=== PATIENT | female | born 1965 | race Caucasian/White ===

== ENCOUNTER 2019-10-31 07:20 | Day surgery (SDC) | payer BC ==
[~2019-10-31 07:20] MED LIST: Lactated Ringers 1,000 ML IV SCH; Sodium Chloride 0.9% 10 ML Syringe FLUSH PRN
[2019-10-31] MEDS ORDERED: Ketorolac 30 MG/ML SDV IVPUSH ONE (07:21)
[2019-10-31] MEDS ORDERED: fentaNYL 100 MCG/2 ML SDV IV ONE (07:21)
[2019-10-31] MEDS ORDERED: Midazolam 1 MG/ML 2 ML SDV IV ONE (07:21)
[2019-10-31] MEDS ORDERED: Lactated Ringers 1,000 ML IV ONE (07:21)
[2019-10-31] MEDS ORDERED: Ondansetron 4 MG/2 ML SDV IVPUSH ONE (07:21)
[2019-10-31] MEDS ORDERED: Dexamethasone 4 MG/ML 5 ML MDV IVPUSH ONE (07:21)
[2019-10-31] MEDS ORDERED: Lidocaine 2% 5 ML SDV INJECT ONE (07:21)
[2019-10-31] MEDS ORDERED: Propofol 200 MG/20 ML SDV IV ONE (07:21)
--- NOTE | 2019-10-31 09:08 | PCM.HPR ---
H & P Addendum review - H & P Addendum Review Date of Original H & P: 10/19/19 Date Reviewed: 10/31/19 Time Reviewed: 08:00 Patient was Examined: No Changes
[2019-10-31] MEDS ORDERED: Isosulfan Blue 5 ML SDV SUBCUT ONE (09:29)
[2019-10-31] MEDS ORDERED: Methylene Blue 50 MG/10 ML Ampule ONE (09:45)
--- NOTE | 2019-10-31 11:12 | MY ---
INDICATION: Previous left breast needle biopsy with diagnosis of breast CA on the left. MAMMOGRAPHY-GUIDED NEEDLE WIRE LOCALIZATION LEFT BREAST: After the examination was described to the patient, a needle localization procedure was obtained with digital mammographic guidance. The needle injection site was prepped as is usual and a [place] mammolock type needle was placed to a location just along the posterior edge of the mass and biopsy clip. The distal end of the needle and curved wire tip were located approximately 2.5 cm from the lesion posteromedially. IMPRESSION: Satisfactory needle localization. The localization was visualized with Dr. Rust at the time of localization. JEN
[2019-10-31] MEDS ORDERED: Albuterol/Ipratropium 3.0-0.5 MG/3 ML Neb Soln NEB ONE (11:13)
[2019-10-31] MEDS ORDERED: Albuterol/Ipratropium 3.0-0.5 MG/3 ML Neb Soln ONE (11:16)
--- NOTE | 2019-10-31 11:17 | MY ---
INDICATION: Postsurgical lumpectomy. MAMMOGRAM SURGICAL SPECIMEN LEFT BREAST: Two specimens were mammogramed with digital technique and revealed in the first a nodular density which most likely is well margined and likely to be the nodular density seen and localized. Adequate margins are likely to be present with this appearance. A second specimen was also obtained and showed a nodular density that is of questionable etiology, most likely not related to the neoplastic process. However, the specimens will be sent to Pathology for the usual analysis. IMPRESSION: Needle localization lumpectomy left breast appears to have adequate margins. Report was called to OR to Dr. Rust. JEN
--- NOTE | 2019-10-31 11:35 | NM ---
INDICATION: History of left breast CA. NUCLEAR MEDICINE TUMOR LOCALIZATION LIMITED: At 0818 hours, left breast injection site by Dr. Rust of 1.24 mCi technetium-99m filtered sulfur colloid, 1.2 mL volume. MTDD
[2019-10-31 12:31] VITALS: BP 111/56; PULSE 74
--- NOTE | 2019-10-31 17:47 | OR ---
DATE OF OPERATION: 10/31/2019 SURGEON: Randal Rust MD PREOPERATIVE DIAGNOSIS: Left breast cancer. POSTOPERATIVE DIAGNOSIS: Left breast cancer. PROCEDURES: 1. Needle localized left breast biopsy. 2. Left axillary sentinel node biopsy. 3. Injection of technetium sulfur colloid. 4. Injection of Lymphazurin blue. ANESTHESIA: General. DESCRIPTION OF PROCEDURE: The patient initially was injected with technetium sulfur colloid 1.2 mL in left lateral areolar edge prior to the needle localization, which was performed by Dr. Rondon. She was then brought to the operating room where general anesthesia was administered with laryngeal mask airway. 3 mL of Lymphazurin blue was injected into the subareolar region and massaged. The left chest and axillary region were prepped and draped sterilely. An elliptical skin incision was made in the left upper outer quadrant below the needle entrance point and skin flaps were raised circumferentially. I initially followed this down to the wire superiorly and obtained a clear medial and lateral margin. I then cut the wire and continued dissection posteriorly. In doing so, I entered what appeared to be a seroma cavity which was likely the previous biopsy site. The tumor was in front of the needle. The posterior margin palpated normal, although I could not definitely palpate the tumor. I then continued to work inferiorly down to the tip of the J-wiring ensuring a clear inferior margin. Once the specimen was removed, the needle and wire had been dislodged. I could not definitely palpate the tumor. I did orientate the specimen with sutures for the pathologist and sent for specimen radiograph. The tumor does appear to be in the specimen, but the metal clip has gone which was likely suctioned from the seroma cavity. I did obtain a new inferior and posterior margin since it did closely approximate that area. I was down to the chest wall posteriorly so that should definitely be a clear margin. I did orientate the new margin for the pathologist and inked it with methylene blue. Moist gauze was placed in the lumpectomy cavity. The sentinel node portion was then performed by making a transverse incision in the axilla over the area of maximal activity. Three sentinel nodes were found with activity of the 416,652, the 2nd one was 27,162, and the 3rd one was 1614. No other palpable abnormalities or areas of activity were present in the axilla. Both wounds were thoroughly irrigated and subcutaneous tissue reapproximated with 3-0 Vicryl. The breast incision was closed with interrupted 4-0 Prolene and axillary incision was closed with 4-0 Vicryl subcuticular sutures and Steri- Strips. A bulky sterile pressure dressing was applied. The patient tolerated the procedure well. Estimated blood loss, 10 mL. She returned to Postanesthesia in stable condition. /[id number] RIMA/ERICKSON
--- NOTE | 2019-11-03 11:59 | PCM.OPNOTE ---
- General Post-Op/Procedure Note Date of Surgery/Procedure: 10/31/19 Operative Procedure(s): Left Breast Bx/Sentinal Node Bx Pre Op Diagnosis: Derrick Handley Ca Post-Op Diagnosis: Same Anesthesia Technique: General LMA Primary Surgeon: Randal MARIN in mLs: 20 Complications: none Condition: Good
== END 2019-10-31 12:38 | disposition home or self-care (01) ==
LOC: FB.SDS 07:20 → EDSTATUS 08:30 → FB.SDS 12:38
PROVIDERS: ATTEND Surgery
DX: C50.412 Malignant neoplasm of upper-outer quadrant of left female breast (principal); Z80.3 Family history of malignant neoplasm of breast
CPT/HCPCS: 19281; 38500; 38792; 76098; 78800; 82962; 88307; 88342; 88360; 88377; J1100; J1885; J2001; J2250; J2405; J2704; J3010; J7120; Q9968; J7620-GY